=== PATIENT | male | born 1965 | race African-American/Black ===

== ENCOUNTER 2016-12-05 14:50 | Emergency (ER) | payer MEDICARE ==
[~2016-12-05] VITALS: Ht 172.7 cm; Wt 122.7 kg
[~2016-12-05 14:50] MED LIST: CHERATUSSIN AC473 ML PO; COUMADIN7.5 MG PO; DOCUSATE SODIU100 MG PO; LASIX20 MG PO; LISINOPRIL2.5 MG PO; LOPRESSOR25 MG PO; LOVENOX100 MG/1 M SC; METOPROLOL TART25 MG PO; PROAIR HFA8.5 GM IH; WARFARIN SODIUM6 MG PO
[2016-12-05] MEDS ORDERED: ATARAX,VISTARIL25 MG PO (15:41)
[2016-12-05] MEDS ORDERED: DELTASONE20 M1 PO (15:41)
[2016-12-05 15:59] VITALS: BP 129/84
== END 2016-12-05 15:59 | disposition home or self-care (01) ==
LOC: EME 14:50
DX: L25.9 Unspecified contact dermatitis, unspecified cause (principal); Z79.01 Long term (current) use of anticoagulants; I10 Essential (primary) hypertension; Z87.891 Personal history of nicotine dependence
CPT/HCPCS: 99281; 99283